=== PATIENT | female | born 1985 | race Caucasian/White ===

== ENCOUNTER 2017-07-13 17:35 | Emergency (ER) | payer OTHER ==
[~2017-07-13] VITALS: Ht 175.3 cm; Wt 75.3 kg
[2017-07-13 17:40] VITALS: BP 117/77
== END 2017-07-13 19:11 | disposition home or self-care (01) ==
LOC: ED 19:00
DX: M79.662 Pain in left lower leg (principal); I83.92 Asymptomatic varicose veins of left lower extremity
CPT/HCPCS: 99284